=== PATIENT | male | born 1975 | race American Indian/Alaskan Native ===

== ENCOUNTER 2018-05-22 12:55 | Emergency (ER) | payer SELFPAY ==
[2018-05-22 13:29] VITALS: BP 138/71
[2018-05-22] MEDS ORDERED: NORCO 5/325 PO ONE (13:39)
--- NOTE | 2018-05-22 14:21 | Emergency Department Report ---
HPI - General Chief Complaint: Extremity Injury, Lower Time Seen by Provider: 05/22/18 13:22 - HPI HPI: Patient is a 42-year-old male who presents to ED complaining of right leg pain status post surgery. On 05/13/2018. Patient states he was working in [place] when he accidentally fell and broke his leg. Patient states he was taken into the hospital and had surgery done. She states she was released and came back home to [place]. Patient states that he's been having pain on his right leg since then. Patient states that he rather this pain medication stating a lot of pain. Patient states that he would need a follow-up as he was given follow-up referrals in [place]. Patient denies any recent injuries to the leg. ED Past Medical Hx - Past Medical History Previous Medical History?: No - Surgical History Past Surgical History?: Yes Additional Surgical History: fibula - Social History Smoking Status: Current Every Day Smoker Substance Use Type: None - Medications Home Medications: Home Medications Medication Instructions Recorded Confirmed Last Taken Type HYDROcodone/APAP 5-325 [[place] 1 each PO Q6H #12 tablet 05/22/18 Unknown Rx 5-325 mg TAB] Ibuprofen [Motrin] 800 mg PO Q8HR #30 tablet 05/22/18 Unknown Rx ED Review of Systems ROS: Stated complaint: POSS (R) BROKEN LEG Other details as noted in HPI Comment: All other systems reviewed and negative Physical Exam - Physical Exam Vital Signs: Vital Signs 05/22/18 13:00 Temperature 98.4 F Pulse Rate 119 H Respiratory 16 Rate Blood Pressure 138/71 O2 Sat by Pulse 99 Oximetry Physical Exam: GENERAL: Alert and oriented x3, no apparent distress, Normal Gait, atraumatic. HEAD: Head is normocephalic and a-traumatic. LUNGS: Symetrical with respiration, No wheezing, no rales or crackles, CTAB. HEART: S1, S2 present, regular rate and rhythm without murmur, no rubs, no gallops. Non tender to palpation EXTREMITIES/MUSCULOSKELETAL: No cyanosis, clubbing, rash, lesions or edema. Full ROM bilaterally. Right leg in Kee bandage. No swelling, no erythema. Stitches suture seen above on thigh as well as the knee. NEUROLOGIC: The patient is cooperative with no focal neurologic deficits. Cranial nerves II through XII are grossly intact. Normal speech. SKIN: Warm and dry, No lesions, No ulceration or induration present. ED Course Vital Signs 05/22/18 13:00 Temperature 98.4 F Pulse Rate 119 H Respiratory 16 Rate Blood Pressure 138/71 O2 Sat by Pulse 99 Oximetry ED Medical Decision Making - Medical Decision Making 42-year-old male presents status post femur fracture, surgical Medicines are normal patient is in acute distress X-rays taken. Discussed the patient will need to follow-up with Dr. Simental orthopedic doctor. Referral given. Patient sent home on pain medication, patient has a walker and walks with a walker. Critical care attestation.: If time is entered above; I have spent that time in minutes in the direct care of this critically ill patient, excluding procedure time. ED Disposition Clinical Impression: Femur fracture, right Disposition: [id number] TO HOME OR SELFCARE Is pt being admited?: No Does the pt Need Aspirin: No Condition: Stable Instructions: Leg Fracture (ED), Arthralgia (ED) Additional Instructions: Make sure to follow up with the orthopedic doctor James as discussed. Take all your medications as you've been prescribed. If you have any worsening symptoms or develop new symptoms please return to ED immediately. Prescriptions: HYDROcodone/APAP 5-325 [[place] 5-325 mg TAB] 1 each PO Q6H #12 tablet Ibuprofen [Motrin] 800 mg PO Q8HR #30 tablet Referrals: BRIT RAMIREZ MD [Primary Care Provider] - 3-5 Days CRISTINA SIMENTAL MD [Staff Physician] - 3-5 Days Time of Disposition: 14:46
--- NOTE | 2018-05-22 14:59 | XRay Report ---
RIGHT TIBIA/FIBULA: History: Fracture/pain AP and lateral views of the right tibia/fibula demonstrate normal mineralization and contours for this patient's age. No destructive changes are noted and the adjacent soft tissues are normal. IMPRESSION: Unremarkable right tibia/fibula.
--- NOTE | 2018-05-22 14:59 | XRay Report ---
RIGHT FEMUR: HISTORY: Fracture/pain. No comparison. There has been previous internal fixation of a comminuted right femoral shaft fracture with an intramedullary mati and screws. Fracture lines are still evident. The remainder of the right femur is intact. The soft tissues are unremarkable. IMPRESSION: Internally fixated right femur fracture.
== END 2018-05-22 15:00 | disposition home or self-care (01) ==
LOC: ED 12:55
DX: S72.91XA Unspecified fracture of right femur, initial encounter for closed fracture (principal); F17.200 Nicotine dependence, unspecified, uncomplicated; Z88.1 Allergy status to other antibiotic agents; W19.XXXA Unspecified fall, initial encounter; Y93.89 Activity, other specified; Y92.89 Other specified places as the place of occurrence of the external cause; Y99.8 Other external cause status

== ENCOUNTER 2021-03-22 12:35 | Emergency (ER) | payer SELFPAY ==
[2021-03-22] MEDS ORDERED: oxyCODONE /ACETAMINOPHEN 5-325MG TAB PO STA (13:25)
[2021-03-22 14:06] VITALS: BP 111/74
--- NOTE | 2021-03-22 14:07 | XRay Report ---
XR ankle 2V RT, XR foot 3+V RT, XR tibia fibula 2V RT INDICATION / CLINICAL INFORMATION: ankle pain. COMPARISON: None available. FINDINGS: Comminuted right fibular diaphyseal fracture. No fracture of the right ankle or right foot. Incomplet alejandro visualized fixation of the femur. Normal alignment of joints. Joint spaces are preserved. No dest ructive osseous lesion or suspicious periosteal reaction. Impression: 1. Proximal right fibular fracture. Signer Name: Suresh Mata MD Signed: 03/22/2021 2:03 PM Workstation Name: [id number]
[2021-03-22] MEDS ORDERED: NAPROXEN 375 MG TAB PO ONE (14:25)
--- NOTE | 2021-03-22 14:45 | Emergency Department Report ---
ED General Adult HPI - General Chief complaint: Extremity Injury, Lower Stated complaint: RIGHT LEG PAIN Time Seen by Provider: 03/22/21 12:57 Source: patient Mode of arrival: Ambulatory Limitations: No Limitations - History of Present Illness Initial comments: Juan Carlos Centeno is a 45-year-old male who presents with right leg pain the pain is moderate walking makes it worse nothing makes it better pain currently is an 8 out of 10 it radiates throughout the leg. Patient denies having any trauma to the leg. Patient states that this is never happened to him before when he tries to stand it makes it worse Severity scale (0 -10): 10 - Related Data Previous Rx's Medication Instructions Recorded Last Taken Type Ibuprofen [Motrin] 800 mg PO Q8HR #30 tablet 05/22/18 Unknown Rx HYDROcodone/APAP 5-325 [[place] 1 each PO Q6H #12 tablet 03/22/21 Unknown Rx 5-325 mg TAB] Allergies Allergy/AdvReac Type Severity Reaction Status Date / Time tetracycline Allergy Unknown Verified 03/22/21 12:38 ED Review of Systems ROS: Stated complaint: RIGHT LEG PAIN Other details as noted in HPI Constitutional: denies: chills, fever Eyes: denies: eye pain, eye discharge, vision change ENT: denies: ear pain, throat pain Respiratory: denies: cough, shortness of breath, wheezing Cardiovascular: denies: chest pain, palpitations Endocrine: no symptoms reported Gastrointestinal: denies: abdominal pain, nausea, diarrhea Genitourinary: denies: urgency, dysuria Musculoskeletal: as per HPI, arthralgia. denies: back pain, joint swelling Skin: denies: rash, lesions Neurological: denies: headache, weakness, paresthesias Psychiatric: denies: anxiety, depression Hematological/Lymphatic: denies: easy bleeding, easy bruising ED Past Medical Hx - Surgical History Additional Surgical History: fibula - Social History Smoking Status: Never Smoker Substance Use Type: None - Medications Home Medications: Home Medications Medication Instructions Recorded Confirmed Last Taken Type Ibuprofen [Motrin] 800 mg PO Q8HR #30 tablet 05/22/18 Unknown Rx HYDROcodone/APAP 5-325 [[place] 1 each PO Q6H #12 tablet 03/22/21 Unknown Rx 5-325 mg TAB] ED Physical Exam - General Limitations: No Limitations General appearance: alert, in no apparent distress - Head Head exam: Present: atraumatic, normocephalic - Eye Eye exam: Present: normal appearance - ENT ENT exam: Present: mucous membranes moist - Neck Neck exam: Present: normal inspection - Respiratory Respiratory exam: Present: normal lung sounds bilaterally. Absent: respiratory distress - Cardiovascular Cardiovascular Exam: Present: regular rate, normal rhythm. Absent: systolic murmur, diastolic murmur, rubs, gallop - GI/Abdominal GI/Abdominal exam: Present: soft, normal bowel sounds - Rectal Rectal exam: Present: deferred - Extremities Exam Extremities exam: Present: tenderness (decreased range of motion and tenderness to the lateral portion of the right leg) - Back Exam Back exam: Present: normal inspection - Neurological Exam Neurological exam: Present: alert, oriented X3 - Psychiatric Psychiatric exam: Present: normal affect, normal mood - Skin Skin exam: Present: warm, dry, intact, normal color. Absent: rash ED Course Vital Signs 03/22/21 03/22/21 12:40 14:04 Temperature 98.9 F 98.1 F Pulse Rate 83 77 Respiratory 18 14 Rate Blood Pressure 136/75 Blood Pressure 111/74 [Right] O2 Sat by Pulse 99 99 Oximetry - Orthopedic Splinting/Casting Injury #1 Side: right Lower Extremity Injury Location: lower leg Lower Extremity Immobilizer: posterior splint Other Orthopedic Equipment: crutches ED Medical Decision Making - Radiology Data Radiology results: report reviewed, image reviewed Xrays of right tib fib reveiwed: Shows a right fib fracture - Medical Decision Making Cdx: Right fib fracture ddx: Tibial fracture, ankle fracture I will give patient oral pain meds and xrays of foot, leg and ankle Patient will get a long leg posterior splint Critical care attestation.: If time is entered above; I have spent that time in minutes in the direct care of this critically ill patient, excluding procedure time. ED Disposition Clinical Impression: Right leg pain Right fibular fracture Qualifiers: Encounter type: initial encounter Fibula location: proximal Fracture type: closed Fracture morphology: other fracture Qualified Code(s): S82.831A - Other fracture of upper and lower end of right fibula, initial encounter for closed fracture Disposition: 01 HOME / SELF CARE / HOMELESS Is pt being admited?: No Does the pt Need Aspirin: No Condition: Stable Prescriptions: HYDROcodone/APAP 5-325 [[place] 5-325 mg TAB] 1 each PO Q6H #12 tablet Referrals: TATIANNA GIVENS MD [Staff Physician] - 3-5 Days
== END 2021-03-22 15:55 | disposition home or self-care (01) ==
LOC: ED 12:35
DX: S82.831A Other fracture of upper and lower end of right fibula, initial encounter for closed fracture (principal); X58.XXXA Exposure to other specified factors, initial encounter; Y93.89 Activity, other specified; Y92.89 Other specified places as the place of occurrence of the external cause; Y99.8 Other external cause status
CPT/HCPCS: 99283

== ENCOUNTER 2021-07-11 10:54 | Emergency (ER) | payer SELFPAY ==
--- NOTE | 2021-07-11 14:24 | Emergency Department Report ---
- General Chief complaint: Skin Rash Stated complaint: EAR DRAINAGE Time Seen by Provider: 07/11/21 14:06 Source: patient Mode of arrival: Ambulatory Limitations: No Limitations - History of Present Illness Initial comments: 45-year-old black male with no past medical history presents to the emergency department for evaluation of skin rash. He states that over the past month or so he has had dry scaly skin to his neck, abdomen, ears, elbows, and knees. He states that area is dry patchy and pruritic. He states that he has been putting cocoa butter cream on it without improvement. He denies any drainage from areas. complaint: rash -: Gradual, month(s) (To) Location: neck, LUE, RUE, LLE, RLE Severity: mild Associated symptoms: denies other symptoms Treatments Prior to Arrival: other (Comfortable ointment) - Related Data Previous Rx's Medication Instructions Recorded Last Taken Type Ibuprofen [Motrin] 800 mg PO Q8HR #30 tablet 05/22/18 Unknown Rx HYDROcodone/APAP 5-325 [[place] 1 each PO Q6H #12 tablet 03/22/21 Unknown Rx 5-325 mg TAB] hydrOXYzine PAMOATE [Vistaril] 25 mg PO Q6HR PRN #21 capsule 07/11/21 Unknown Rx predniSONE [Deltasone] 5 mg PO DAILY #21 tab 07/11/21 Unknown Rx Allergies Allergy/AdvReac Type Severity Reaction Status Date / Time tetracycline Allergy Unknown Verified 03/22/21 12:38 Abscess Boil HPI - HPI Chief Complaint: Skin Rash Stated Complaint: EAR DRAINAGE Time Seen by Provider: 07/11/21 14:06 Home Medications: Previous Rx's Medication Instructions Recorded Last Taken Type Ibuprofen [Motrin] 800 mg PO Q8HR #30 tablet 05/22/18 Unknown Rx HYDROcodone/APAP 5-325 [[place] 1 each PO Q6H #12 tablet 03/22/21 Unknown Rx 5-325 mg TAB] hydrOXYzine PAMOATE [Vistaril] 25 mg PO Q6HR PRN #21 capsule 07/11/21 Unknown Rx predniSONE [Deltasone] 5 mg PO DAILY #21 tab 07/11/21 Unknown Rx Allergies/Adverse Reactions: Allergies Allergy/AdvReac Type Severity Reaction Status Date / Time tetracycline Allergy Unknown Verified 03/22/21 12:38 ED Review of Systems ROS: Stated complaint: EAR DRAINAGE Other details as noted in HPI Comment: All other systems reviewed and negative Constitutional: denies: chills, fever, malaise, weakness Eyes: denies: eye pain, eye discharge ENT: denies: ear pain, throat pain Respiratory: denies: cough, shortness of breath Cardiovascular: denies: chest pain, palpitations, dyspnea on exertion Endocrine: no symptoms reported Gastrointestinal: denies: abdominal pain, nausea, vomiting Genitourinary: denies: urgency, dysuria, frequency, hematuria Musculoskeletal: denies: back pain Skin: rash, pruritus Neurological: denies: headache, weakness, numbness Psychiatric: denies: anxiety, depression Hematological/Lymphatic: denies: easy bleeding, easy bruising ED Past Medical Hx - Past Medical History Previous Medical History?: No - Surgical History Past Surgical History?: Yes Additional Surgical History: fibula - Social History Smoking Status: Never Smoker Substance Use Type: None - Medications Home Medications: Home Medications Medication Instructions Recorded Confirmed Last Taken Type Ibuprofen [Motrin] 800 mg PO Q8HR #30 tablet 05/22/18 Unknown Rx HYDROcodone/APAP 5-325 [[place] 1 each PO Q6H #12 tablet 03/22/21 Unknown Rx 5-325 mg TAB] hydrOXYzine PAMOATE [Vistaril] 25 mg PO Q6HR PRN #21 capsule 07/11/21 Unknown Rx predniSONE [Deltasone] 5 mg PO DAILY #21 tab 07/11/21 Unknown Rx ED Physical Exam - General Limitations: No Limitations General appearance: alert, in no apparent distress - Head Head exam: Present: atraumatic, normocephalic - ENT ENT exam: Present: other (Noted to have dry scaly patches on them behind bilateral ears). Absent: normal exam - Neck Neck exam: Present: other (Noted to have dry scaly patches to the back of neck). Absent: normal inspection - Respiratory Respiratory exam: Present: normal lung sounds bilaterally. Absent: respiratory distress, wheezes, rales, rhonchi, stridor, chest wall tenderness, accessory muscle use - Cardiovascular Cardiovascular Exam: Present: regular rate, normal heart sounds - GI/Abdominal GI/Abdominal exam: Present: soft, normal bowel sounds, other (Noted to have dry scaly patches to the bottom of abdominal area no drainage noted). Absent: distended, tenderness, guarding, rebound, rigid - Extremities Exam Extremities exam: Present: other (Dry scaly patches noted to bilateral elbows and behind bilateral knees) - Back Exam Back exam: Present: normal inspection - Neurological Exam Neurological exam: Present: alert, oriented X3 - Psychiatric Psychiatric exam: Present: normal affect, normal mood - Skin Skin exam: Present: warm, dry, intact, rash, other (Scaly patches areas noted above) ED Course Vital Signs 07/11/21 11:11 Temperature 97.8 F Pulse Rate 96 H Respiratory 16 Rate Blood Pressure 139/71 [Left] O2 Sat by Pulse 100 Oximetry ED Medical Decision Making - Medical Decision Making 45-year-old black male with no past medical history presents to the emergency department for evaluation of skin rash. He states that over the past month or so he has had dry scaly skin to his neck, abdomen, ears, elbows, and knees. He states that area is dry patchy and pruritic. He states that he has been putting cocoa butter cream on it without improvement. He denies any drainage from areas. Exam noted to be consistent with eczema patches. Patient will be given a course of oral steroids and Vistaril as needed for itching and advised to follow-up with dermatology for further evaluation and management. He was advised to return to the emergency department if no improvement or worsening symptoms. He verbalized understanding of and agreement with plan of care. Critical care attestation.: If time is entered above; I have spent that time in minutes in the direct care of this critically ill patient, excluding procedure time. ED Disposition Clinical Impression: Eczema Qualifiers: Eczema type: unspecified Qualified Code(s): L30.9 - Dermatitis, unspecified Disposition: HOME / SELF CARE / HOMELESS Is pt being admited?: No Does the pt Need Aspirin: No Condition: Stable Instructions: Atopic Dermatitis, Eczema Additional Instructions: Take medication as prescribed. Follow-up with dermatology for further evaluation and management. Prescriptions: predniSONE [Deltasone] 5 mg PO DAILY #21 tab hydrOXYzine PAMOATE [Vistaril] 25 mg PO Q6HR PRN #21 capsule PRN Reason: Itching Referrals: YOLANDA JARVIS MD [Referring] - 3-5 Days Time of Disposition: 15:00
[2021-07-11 15:24] VITALS: BP 132/85
== END 2021-07-11 15:24 | disposition home or self-care (01) ==
LOC: ED 10:54
DX: L30.9 Dermatitis, unspecified (principal); Z88.1 Allergy status to other antibiotic agents
CPT/HCPCS: 99282